=== PATIENT | female | born 1985 | race Hispanic/Latino ===

== ENCOUNTER 2017-12-10 02:19 | Emergency (ER) | payer BC ==
--- NOTE | 2017-12-10 04:10 | ED PDOC ---
HPI: Female Pain Time Seen by Provider: 12/10/17 03:53 Chief Complaint (Nursing): Female Genitourinary History Per: Patient History/Exam Limitations: no limitations Onset/Duration Of Symptoms: Days Current Symptoms Are (Timing): Still Present Quality Of Discomfort: Pressure Additional Complaint(s): No PMHX presenting with hematuria, dysuria, hesitancy x 2 days, states she thinks she has a UTI. No fevers, chills, nausea, vomiting, back pain. Past Medical History Reviewed: Historical Data, Nursing Documentation, Vital Signs Vital Signs: Last Vital Signs Temp 98.2 F 12/10/17 03:12 Pulse 72 12/10/17 03:12 Resp 18 12/10/17 03:12 BP 108/72 12/10/17 03:12 Pulse Ox 98 12/10/17 03:12 - Medical History PMH: No Chronic Diseases - Family History Family History: States: No Known Family Hx - Home Medications Home Medications: Ambulatory Orders Medication Instructions Recorded Nitrofurantoin Macrocrystals 100 mg PO BID 5 Days cap 12/10/17 [Macrobid] Phenazopyridine [Pyridium] 200 mg PO TID 2 Days tab 12/10/17 - Allergies Allergies/Adverse Reactions: Allergies Allergy/AdvReac Type Severity Reaction Status Date / Time No Known Allergies Allergy Verified 12/10/17 03:12 Review of Systems ROS Statement: Except As Marked, All Systems Reviewed And Found Negative Genitourinary Female: Positive for: Dysuria, Frequency, Hematuria Physical Exam - Reviewed Nursing Documentation Reviewed: Yes Vital Signs Reviewed: Yes - Physical Exam Appears: Positive for: Well, Non-toxic, No Acute Distress Head Exam: Positive for: ATRAUMATIC, NORMAL INSPECTION, NORMOCEPHALIC Skin: Positive for: Normal Color, Warm, DRY Eye Exam: Positive for: EOMI, Normal appearance, PERRL ENT: Positive for: Normal ENT Inspection Neck: Positive for: Normal, Painless ROM Cardiovascular/Chest: Positive for: Regular Rate, Rhythm Respiratory: Positive for: CNT, Normal Breath Sounds Gastrointestinal/Abdominal: Positive for: Normal Exam, Soft. 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
[2017-12-10 05:26] VITALS: BP 164/80; PULSE 76; RESP 16; TEMP 98.1; O2SAT 97
== END 2017-12-10 05:29 | disposition home or self-care (01) ==
LOC: H.ER 02:19
DX: N39.0 Urinary tract infection, site not specified (principal)